=== PATIENT | female | born 1990 | race African-American/Black ===

== ENCOUNTER 2021-06-24 11:17 | Emergency (ER) | payer OTHER ==
[~2021-06-24] VITALS: Ht 165.1 cm; Wt 64.0 kg
[2021-06-24] MEDS ORDERED: ONDANSETRON HCL 4MG/2ML INJ IV STA ×2 (11:36→18:08)
[2021-06-24] MEDS ORDERED: MORPHINE SULFATE 4 MG/ML CPJ (NOT FOR IM USE) IV STA ×2 (11:36→18:08)
[2021-06-24] MEDS ORDERED: SODIUM CHLORIDE 0.9% 1,000 ML IV ONE (11:45)
[2021-06-24 12:18] LABS: BASOPHILS % 0.6 % (0.0-2.0); EOSINOPHILS % 0.4 % (0.0-5.0); HEMATOCRIT. 32.4 % (36.0-48.0); HEMOGLOBIN. 10.6 g/dL (12.0-16.0); LYMPHOCYTES % 25.6 % (20.0-50.0); MEAN CORPUSCULAR HEMOGLOBIN 22.8 pg (28.0-32.0); MEAN CORPUSCULAR VOLUME 69.6 fL (81.0-99.0); MEAN PLATELET VOLUME 8.1 fl (7.4-10.4); MONOCYTES % 6.2 % (2.0-8.0); NEUTROPHILS % 67.2 % (40.0-76.0); PLATELET 311 x1000/uL (130-400); RED BLOOD CELL COUNT 4.65 mill/uL (4.2-5.4); RED CELL DISTRIBUTION WIDTH 22.4 % (11.6-14.6)
[2021-06-24 12:25] LABS: CHLORIDE 105 mEq/L (98-107)
[2021-06-24 12:48] LABS: HCG SCREEN NEGATIVE
[2021-06-24 12:57] LABS: PLATELET ESTIMATE NORMAL
[2021-06-24] MEDS ORDERED: MORPHINE SULFATE 4 MG/ML CPJ (NOT FOR IM USE) IV ONE ×2 (13:00→14:30)
[2021-06-24] MEDS ORDERED: CEFTRIAXONE 1 G PREMIX 50 ML IV ONE (14:00)
[2021-06-24] MEDS ORDERED: DOXYCYCLINE 100 MG in DEXT 5% WATER 100 ML IV SCH (14:00)
[2021-06-24] MEDS ORDERED: METRONIDAZOLE 500 MG PREMIX 100 ML IV ONE (14:30)
[2021-06-24 15:32] LABS: CLARITY URINE CLEAR (CLEAR); COLOR URINE YELLOW (YELLOW); KETONES URINE NEGATIVE (NEGATIVE); LEUKOCYTE ESTERASE URINE NEGATIVE (NEGATIVE); NITRITE URINE POSITIVE (NEGATIVE); OCCULT BLOOD URINE TRACE (NEGATIVE); PROTEIN URINE NEGATIVE (NEGATIVE); SPECIFIC GRAVITY URINE 1.016 (1.005-1.030); UROBILINOGEN URINE 0.2 E.U./dL (0.2-1.0)
[2021-06-24 15:45] LABS: *AMPHETAMINES SCREEN URINE NEGATIVE (NEGATIVE); *BARBITURATES SCREEN URINE NEGATIVE (NEGATIVE); *COCAINE SCREEN URINE NEGATIVE (NEGATIVE)
[2021-06-24 15:46] LABS: *BENZODIAZEPINES SCREEN URINE NEGATIVE (NEGATIVE); METHADONE URINE SCREEN NEGATIVE (NEGATIVE); PHENCYCLIDINE URINE SCREEN NEGATIVE (NEGATIVE)
[2021-06-24 15:58] LABS: CANNABINOID URINE SCREEN PRESUMTIVE POSITIVE (NEGATIVE); OPIATES URINE SCREEN PRESUMTIVE POSITIVE (NEGATIVE)
[2021-06-24 19:51] VITALS: BP 136/86
[2021-06-27 04:07] LABS: NEISSERIA GONORRHOEAE NAA Negative (Negative)
== END 2021-06-24 20:14 | disposition short-term general hospital (02) ==
LOC: ER 11:17
DX: N73.0 Acute parametritis and pelvic cellulitis (principal); Z87.19 Personal history of other diseases of the digestive system; Z20.822 Contact with and (suspected) exposure to COVID-19; Z98.890 Other specified postprocedural states; Z88.0 Allergy status to penicillin
CPT/HCPCS: 36415; 71045; 74176; 76830; 76856; 80053; 80305; 81003; 83690; 84703; 85025; 87210; 87426; 87491; 87591; 93005; 96365; 96366; 96368; 96375; 96376; 99285; J0696; J2270; J2405; J3490; J7030; J7060; A4315

== ENCOUNTER 2021-06-29 15:10 | Inpatient (IN) | payer MEDICAID, OTHER ==
[~2021-06-29] VITALS: Ht 172.7 cm; Wt 74.8 kg
[2021-06-29] MEDS ORDERED: SODIUM CHLORIDE 0.9% 1,000 ML IV ONE (15:45)
[2021-06-29] MEDS ORDERED: FAMOTIDINE 20MG/2ML VIAL IV STA (15:45)
[2021-06-29] MEDS ORDERED: ONDANSETRON HCL 4MG/2ML INJ IV STA (15:45)
[2021-06-29] MEDS ORDERED: SODIUM CHLORIDE 0.9% 1000ML BAG (SEPSIS BOLUS) IV ONE (15:45)
[2021-06-29] MEDS ORDERED: MORPHINE SULFATE 4 MG/ML CPJ (NOT FOR IM USE) IV STA (15:45)
[2021-06-29 16:36] LABS: CHLORIDE 103 mEq/L (98-107)
[2021-06-29 16:37] LABS: HEMATOCRIT. 34.9 % (36.0-48.0); HEMOGLOBIN. 11.4 g/dL (12.0-16.0); MEAN CORPUSCULAR VOLUME 70.1 fL (81.0-99.0); MEAN PLATELET VOLUME 8.4 fl (7.4-10.4); PLATELET 414 x1000/uL (130-400); RED BLOOD CELL COUNT 4.98 mill/uL (4.2-5.4); RED CELL DISTRIBUTION WIDTH 22.9 % (11.6-14.6)
[2021-06-29 17:09] LABS: PLATELET ESTIMATE INCREASED
[2021-06-29] MEDS ORDERED: DEXAMETHASONE 4MG/ML 1ML VIAL IV ONE (18:30)
[2021-06-29] MEDS ORDERED: ONDANSETRON HCL 4MG/2ML INJ IV ONE (18:30)
[2021-06-29] MEDS ORDERED: MORPHINE SULFATE 4 MG/ML CPJ (NOT FOR IM USE) IV ONE (18:30)
[2021-06-29 20:30] VITALS: BP 138/93
[2021-06-29] MEDS: HYDROCODONE/ACETAMINOPHEN 5/325MG TABLET PO PRN (21:42)
[2021-06-29] MEDS: METRONIDAZOLE 500MG TABLET PO SCH ×2 (21:42→21:47)
[2021-06-29] MEDS ORDERED: NALOXONE HCL 0.4MG/ML VIAL IV PRN (21:45)
[2021-06-29] MEDS ORDERED: KETOROLAC 15MG/ML VIAL IV PRN (22:00)
[2021-06-29] MEDS: ONDANSETRON HCL 4MG/2ML INJ IV PRN (22:14)
[2021-06-29] MEDS ORDERED: DOXY150T5 MT (22:28)
[2021-06-29] MEDS ORDERED: FOLI-43 MT (22:28)
[2021-06-29] MEDS ORDERED: METR-167 MT (22:28)
[2021-06-29] MEDS ORDERED: HYDR-4001 MT (22:28)
[2021-06-29 22:34] VITALS: BP 138/93
[2021-06-29] MEDS: DOXYCYCLINE 100 MG in DEXT 5% WATER 100 ML IV SCH (23:00)
[2021-06-30] VITALS (7 sets, daily range): BP systolic 96–171; BP diastolic 52–110
[2021-06-30] MEDS ORDERED: CLONIDINE 0.1MG TABLET PO PRN (03:45)
[2021-06-30] MEDS: KETOROLAC 15MG/ML VIAL IV PRN ×2 (04:03→11:46)
[2021-06-30] MEDS: ONDANSETRON HCL 4MG/2ML INJ IV PRN ×2 (04:03→11:45)
[2021-06-30 04:42] LABS: CLARITY URINE CLEAR (CLEAR); COLOR URINE YELLOW (YELLOW); KETONES URINE 1+ (NEGATIVE); LEUKOCYTE ESTERASE URINE TRACE (NEGATIVE); NITRITE URINE NEGATIVE (NEGATIVE); OCCULT BLOOD URINE 1+ (NEGATIVE); PROTEIN URINE 2+ (NEGATIVE); SPECIFIC GRAVITY URINE 1.023 (1.005-1.030); UROBILINOGEN URINE 0.2 E.U./dL (0.2-1.0)
[2021-06-30] MEDS: METRONIDAZOLE 500MG TABLET PO SCH ×3 (05:55→21:03)
[2021-06-30] MEDS: FAMOTIDINE 20MG TABLET PO SCH ×2 (08:33→08:40)
[2021-06-30] MEDS: DOXYCYCLINE 100 MG in DEXT 5% WATER 100 ML IV SCH ×2 (08:33→21:03)
[2021-06-30] MEDS: FOLIC ACID 1MG TABLET PO SCH ×2 (08:34→08:40)
[2021-06-30] MEDS: PANTOPRAZOLE SODIUM 40 MG/VIAL IV SCH ×2 (13:30→14:07)
[2021-06-30] MEDS ORDERED: OMEP40CA20 MT (16:23)
[2021-06-30] MEDS: HYDROCODONE/ACETAMINOPHEN 5/325MG TABLET PO PRN (16:34)
[2021-06-30] MEDS ORDERED: MORPHINE SULFATE 2 MG/ML CPJ (NOT FOR IM USE) IV PRN (17:15)
[2021-06-30] MEDS ORDERED: KETOROLAC 30MG/ML VIAL IV NR (17:30)
[2021-07-01] VITALS: BP 96/59
[2021-07-01] MEDS: KETOROLAC 15MG/ML VIAL IV PRN ×3 (00:22→17:47)
[2021-07-01 04:00] VITALS: BP 99/61
[2021-07-01] MEDS: METRONIDAZOLE 500MG TABLET PO SCH ×3 (05:36→20:58)
[2021-07-01] MEDS: DOXYCYCLINE 100 MG in DEXT 5% WATER 100 ML IV SCH ×2 (08:19→20:58)
[2021-07-01] MEDS: PANTOPRAZOLE SODIUM 40 MG/VIAL IV SCH (08:19)
[2021-07-01] MEDS: FOLIC ACID 1MG TABLET PO SCH (08:20)
[2021-07-01] MEDS: ONDANSETRON HCL 4MG/2ML INJ IV PRN (09:38)
[2021-07-01 12:00] VITALS: BP 101/55
[2021-07-01] MEDS ORDERED: MAGNESIUM/ALUMINUM HYDROXIDE/SIMETHICONE 30ML UDC PO PRN (13:15)
[2021-07-01] MEDS: METOCLOPRAMIDE HCL 10MG/2ML VIAL IV SCH ×3 (13:21→23:23)
[2021-07-01 16:00] VITALS: BP 105/41
[2021-07-01] MEDS: SUCRALFATE 1 G/10 ML UDC PO SCH ×2 (17:10→20:58)
[2021-07-01 17:29] LABS: HEMATOCRIT 30.4 % (36.0-48.0); MEAN CORPUSCULAR VOLUME 69.6 fL (81.0-99.0); PLATELET 360 x1000/uL (130-400); RED BLOOD CELL COUNT 4.37 mill/uL (4.2-5.4); RED CELL DISTRIBUTION WIDTH 23.1 % (11.6-14.6)
[2021-07-01 17:37] LABS: CHLORIDE 109 mEq/L (98-107)
[2021-07-01 17:41] LABS: AMYLASE 113 IU/L (25-115)
[2021-07-01 17:42] LABS: GAMMA GLUTAMYL TRANSPEPTIDASE 9 IU/L (7-32)
[2021-07-01 17:48] LABS: TOTAL IRON BINDING CAPACITY 304 ug/dL (250-450)
[2021-07-01 17:59] LABS: FOLIC ACID (FOLATE) SERUM 10.4 ng/mL (>5.38)
[2021-07-01] MEDS ORDERED: POTASSIUM CHLORIDE 20MEQ TABLET SR PO NR (18:15)
[2021-07-01 18:42] LABS: HCG SCREEN NEGATIVE
[2021-07-01 20:00] VITALS: BP 95/44
[2021-07-01] MEDS: DOCUSATE SODIUM 100MG CAPSULE PO SCH (20:30)
[2021-07-01] MEDS: FERROUS SULFATE 325MG TABLET PO SCH (20:58)
[2021-07-01] MEDS ORDERED: MAGNESIUM 1 G PREMIX 100 ML IV NR (21:30)
[2021-07-02] VITALS: BP 95/40
[2021-07-02] MEDS: SUCRALFATE 1 G/10 ML UDC PO SCH ×2 (05:17→11:50)
[2021-07-02] MEDS: METOCLOPRAMIDE HCL 10MG/2ML VIAL IV SCH (05:17)
[2021-07-02] MEDS: METRONIDAZOLE 500MG TABLET PO SCH ×2 (05:18→11:51)
[2021-07-02] MEDS: FERROUS SULFATE 325MG TABLET PO SCH ×2 (07:10→11:51)
[2021-07-02 08:00] VITALS: BP 109/53
[2021-07-02] MEDS: FOLIC ACID 1MG TABLET PO SCH (08:38)
[2021-07-02] MEDS: DOCUSATE SODIUM 100MG CAPSULE PO SCH (08:38)
[2021-07-02] MEDS ORDERED: PANTOPRAZOLE SODIUM 40 MG/VIAL IV SCH (09:00)
[2021-07-02] MEDS ORDERED: FAMOTIDINE 20MG/2ML VIAL IV SCH (09:00)
[2021-07-02 12:00] VITALS: BP 90/65
== END 2021-07-02 14:04 | disposition home or self-care (01) | DRG 243 ==
LOC: ER 15:10 → 5WST 17:55 → EDBEDREQTM 18:04 → EDBEDREQ 18:04 → ENRESERV 19:01 → 7EST 07-01 10:10
PROVIDERS: ADMIT Internal Medicine; ATTEND Internal Medicine
DX: K21.9 Gastro-esophageal reflux disease without esophagitis (principal); E87.1 Hypo-osmolality and hyponatremia; R65.10 Systemic inflammatory response syndrome (SIRS) of non-infectious origin without acute organ dysfunction; K29.70 Gastritis, unspecified, without bleeding; K20.90 Esophagitis, unspecified without bleeding; E86.0 Dehydration; N73.9 Female pelvic inflammatory disease, unspecified; G89.29 Other chronic pain; F12.90 Cannabis use, unspecified, uncomplicated; Z90.49 Acquired absence of other specified parts of digestive tract; Z88.0 Allergy status to penicillin; Z59.00 Homelessness unspecified; Z71.51 Drug abuse counseling and surveillance of drug abuser; R11.2 Nausea with vomiting, unspecified
CPT/HCPCS: 36415; 80048; 80053; 80076; 81003; 82150; 82607; 82728; 82746; 82977; 83036; 83540; 83550; 83735; 84703; 85025; 85027; 99285; C1893; C9113; J1100; J1885; J2270; J2405; J2765; J3475; J3490; J7030; J7040; J7060

== ENCOUNTER 2023-07-11 11:06 | Emergency (ER) | payer OTHER ==
[~2023-07-11] VITALS: Ht 165.1 cm; Wt 85.0 kg
[~2023-07-11 11:06] MED LIST: DOXY150T5 MT; FOLI-43 MT; HYDR-4001 MT; METR-167 MT; OMEP40CA20 MT
[2023-07-11 11:09] VITALS: O2SAT 99
[2023-07-11 12:08] LABS: BASOPHILS % 0.1 % (0.0-2.0); DIFFERENTIAL COMMENT 0; HEMATOCRIT. 40.8 % (36.0-48.0); HEMOGLOBIN. 13.6 g/dL (12.0-16.0); LYMPHOCYTES % 8.1 % (20.0-50.0); MEAN CORPUSCULAR HEMOGLOBIN 26.4 pg (28.0-32.0); MEAN CORPUSCULAR HGB CONC 33.3 g/dL (31.0-37.0); MEAN CORPUSCULAR VOLUME 79.3 fL (81.0-99.0); MEAN PLATELET VOLUME 8.4 fl (7.4-10.4); MONOCYTES % 1.9 % (2.0-8.0); NEUTROPHILS % 89.9 % (40.0-76.0); PLATELET 352 x1000/uL (130-400); RED BLOOD CELL COUNT 5.14 mill/uL (4.2-5.4); WHITE BLOOD COUNT 10.2 x1000/uL (4.5-11.0)
[2023-07-11 12:37] LABS: ALANINE AMINOTRANSFERASE 24 IU/L (10-49); ALBUMIN 5.1 g/dL (3.2-4.8); ASPARTATE AMINOTRANSFERASE 24 IU/L (<34); BILIRUBIN TOTAL 0.4 mg/dL (0.1-1.0); CALCIUM 9.8 mg/dL (8.7-10.4); CARBON DIOXIDE 20 mEq/L (21-32); CHLORIDE 102 mEq/L (98-107); CREATININE 0.7 mg/dL (0.6-1.0); GLUCOSE 160 mg/dL (70-105); POTASSIUM 3.5 mEq/L (3.5-5.1); SODIUM 135 mEq/L (136-145); UREA NITROGEN BLOOD 16 mg/dL (9-23)
[2023-07-11 16:01] LABS: CLARITY URINE CLEAR (CLEAR); COLOR URINE YELLOW (YELLOW); GLUCOSE URINE 1+ (NEGATIVE); KETONES URINE NEGATIVE (NEGATIVE); LEUKOCYTE ESTERASE URINE NEGATIVE (NEGATIVE); NITRITE URINE NEGATIVE (NEGATIVE); OCCULT BLOOD URINE 2+ (NEGATIVE); PROTEIN URINE 2+ (NEGATIVE); SPECIFIC GRAVITY URINE 1.028 (1.005-1.030); UROBILINOGEN URINE 0.2 E.U./dL (0.2-1.0)
[2023-07-11 16:01] LABS: HCG SCREEN NEGATIVE
[2023-07-11] MEDS: MORPHINE SULFATE 4 MG/ML INJ (FOR IV/IM USE) IV ONE ×2 (16:15→23:43)
[2023-07-11] MEDS: ONDANSETRON HCL 4MG/2ML INJ IV ONE ×2 (16:15→23:44)
[2023-07-11 16:38] LABS: BACTERIA URINE 1+; SQUAMOUS EPITHELIAL CELL URINE 1+ /lpf (RARE/1+); WBC URINE 0-2 /hpf (0-2)
[2023-07-11] MEDS ORDERED: IBUP-2030 MT (22:50)
[2023-07-11] MEDS ORDERED: ONDA4TAB50 MT (22:50)
[2023-07-11] MEDS ORDERED: TAMS-11 MT (22:50)
[2023-07-12 00:12] VITALS: BP 165/86; PULSE 109; RESP 16; TEMP 99.2
== END 2023-07-12 00:13 | disposition home or self-care (01) ==
LOC: ER 11:06
DX: N23 Unspecified renal colic (principal); Z90.49 Acquired absence of other specified parts of digestive tract; Z88.0 Allergy status to penicillin
CPT/HCPCS: 80053; 81003; 84703; 83690; 85025; 36415; 74176; 76705; 96374; 96375; 96376; 99285; J2405; J2270; Z7610

== ENCOUNTER 2023-08-04 20:58 | Emergency (ER) | payer MEDICAID ==
[~2023-08-04] VITALS: Ht 190.5 cm; Wt 75.0 kg
[~2023-08-04 20:58] MED LIST changes: +IBUP-2030 MT; +ONDA4TAB50 MT; +TAMS-11 MT
[2023-08-04 21:23] VITALS: O2SAT 97
[2023-08-04 21:43] LABS: BASOPHILS % 0.5 % (0.0-2.0); EOSINOPHILS % 0.1 % (0.0-5.0); HEMATOCRIT. 38.5 % (36.0-48.0); HEMOGLOBIN. 12.8 g/dL (12.0-16.0); LYMPHOCYTES % 19.9 % (20.0-50.0); MEAN CORPUSCULAR HEMOGLOBIN 26.6 pg (28.0-32.0); MEAN CORPUSCULAR HGB CONC 33.2 g/dL (31.0-37.0); MEAN CORPUSCULAR VOLUME 80.1 fL (81.0-99.0); MEAN PLATELET VOLUME 8.1 fl (7.4-10.4); MONOCYTES % 6.3 % (2.0-8.0); NEUTROPHILS % 73.2 % (40.0-76.0); PLATELET 310 x1000/uL (130-400); RED CELL DISTRIBUTION WIDTH 15.5 % (11.6-14.6); WHITE BLOOD COUNT 7.7 x1000/uL (4.5-11.0)
[2023-08-04 21:44] LABS: CARBON DIOXIDE 28 mEq/L (21-32); CHLORIDE 103 mEq/L (98-107); SODIUM 138 mEq/L (136-145)
[2023-08-04 21:45] LABS: CALCIUM 9.9 mg/dL (8.7-10.4)
[2023-08-04 21:46] LABS: PROTHROMBIN TIME 11.6 sec (9.6-11.0)
[2023-08-04 21:50] LABS: CREATININE 0.7 mg/dL (0.6-1.0); GLUCOSE 115 mg/dL (70-105); UREA NITROGEN BLOOD 12 mg/dL (9-23)
[2023-08-04 21:51] LABS: ALANINE AMINOTRANSFERASE 15 IU/L (10-49); ASPARTATE AMINOTRANSFERASE 14 IU/L (<34); ETHANOL BLOOD < 10 mg/dL (<10)
[2023-08-04 21:52] LABS: ALBUMIN 4.4 g/dL (3.2-4.8); BILIRUBIN TOTAL 0.4 mg/dL (0.1-1.0); PROTEIN TOTAL 7.4 g/dL (6.0-8.3)
[2023-08-04] MEDS: KETOROLAC 30MG/ML VIAL IV STA (22:43)
[2023-08-04] MEDS: ONDANSETRON HCL 4MG/2ML INJ IV ONE (22:43)
[2023-08-04] MEDS: SODIUM CHLORIDE 0.9% 1,000 ML IV ONE (22:47)
[2023-08-05 00:04] LABS: HCG SCREEN NEGATIVE
[2023-08-05] MEDS: ACETAMINOPHEN 1000MG/100ML 100 ML IV NR (01:19)
[2023-08-05] MEDS: MAGNESIUM/ALUMINUM HYDROXIDE/SIMETHICONE 30ML UDC PO NR (01:19)
[2023-08-05 02:05] VITALS: BP 107/75; PULSE 76; RESP 12; TEMP 98.1
[2023-08-05] MEDS ORDERED: ACET-2708 MT (02:21)
[2023-08-05] MEDS ORDERED: MAG355OR21 MT (02:21)
[2023-08-05] MEDS ORDERED: ONDA4TAB50 MT (02:21)
== END 2023-08-05 02:51 | disposition home or self-care (01) ==
LOC: ER 20:58
DX: R10.13 Epigastric pain (principal); N83.201 Unspecified ovarian cyst, right side; Z87.19 Personal history of other diseases of the digestive system; Z79.899 Other long term (current) drug therapy
CPT/HCPCS: 80053; 80320; 84703; 83605; 83690; 85025; 85610; 36415; 71045; 96361; 96374; 96375 ×2; 99285; 74176; J1885; J2405; J7030; Z7610 ×2; G0480; J0131

== ENCOUNTER 2023-08-06 09:51 | Emergency (ER) | payer MEDICAID ==
[~2023-08-06] VITALS: Ht 152.4 cm; Wt 77.0 kg
[~2023-08-06 09:51] MED LIST changes: +ACET-2708 MT; +MAG355OR21 MT
[2023-08-06 10:15] VITALS: BP 116/86; PULSE 78; RESP 16; TEMP 98; O2SAT 100
[2023-08-06] MEDS ORDERED: ONDANSETRON 4MG ODT PO STA (10:32)
== END 2023-08-06 11:35 | disposition left against medical advice (07) ==
LOC: ER 09:56
DX: R10.13 Epigastric pain (principal); Z88.0 Allergy status to penicillin; Z79.899 Other long term (current) drug therapy; Z90.49 Acquired absence of other specified parts of digestive tract
CPT/HCPCS: 99281